=== PATIENT | female | born 1990 | race Caucasian/White ===

== ENCOUNTER 2016-08-29 04:53 | Emergency (ER) | payer MEDICAID, OTHER ==
[~2016-08-29] VITALS: Ht 160 cm; Wt 98.5 kg
[~2016-08-29 04:53] MED LIST: PREN1TAB49 PO
[2016-08-29 05:10] VITALS: Ht 160 cm; Wt 98.5 kg
--- NOTE | 2016-08-29 05:28 | ERD ---
ER Documentation Chief Complaint Date/Time DATE: 08/29/16 TIME: 05:26 Chief Complaint Vaginal bleed possible with home test kit (OZZIE COLE PA-C) HPI Patient is a 26-year-old female who is who presents to the ED with mild vaginal bleeding and pelvic pain 1 day. She states that she developed mild bleeding starting yesterday. She states that she found out she was 1 week ago. She states that her last normal menstrual period was 06/01/2016. She does not have an OB doctor. Denies fever or chills. Denies abdominal pain but does complain of nausea with no vomiting or diarrhea. Denies leg pain or swelling. Denies recent travel or recent surgeries. Denies chest pain, cough, shortness of breath or difficulty breathing. No other complaints. (OZZIE COLE PA-C) ROS All systems reviewed and are negative except as per history of present illness. (OZZIE COLE PA-C) Medications Home Meds Reported Medications Vits W-Ca,Fe,Fa(<1MG) () 1 Tab Tablet, 1 TAB PO 04/19/12 Allergies Allergies: Coded Allergies: No Known Allergies (Verified Allergy, 04/19/12) PMhx/Soc Medical and Surgical Hx: pt denies Medical Hx, pt denies Surgical Hx History of Surgery: No Anesthesia Reaction: No Hx Neurological Disorder: No Hx Respiratory Disorders: No Hx Cardiac Disorders: No Hx Psychiatric Problems: No Hx Miscellaneous Medical Probl: No Hx Alcohol Use: No Hx Substance Use: No Hx Tobacco Use: No Smoking Status: Never smoker (OZZIE COLE PA-C) Physical Exam Vitals Vital Signs Date Time Temp Pulse Resp B/P Pulse Ox O2 Delivery O2 Flow Rate FiO2 08/29/16 05:10 98.7 84 18 130/74 97 (MATTY GAMEZ PA-C) Physical Exam GENERAL: Well-developed, well-nourished female. Appears in no acute distress. HEAD: Normocephalic, atraumatic. EYES: Pupils are equally reactive bilaterally. EOMs grossly intact. No conjunctival erythema. ENT: Moist mucous membranes. No uvula deviation. No kissing tonsils. No exudates. NECK: Supple. No lymphadenopathy or thyromegaly. No meningismus. negative kernig. negative brudinski. LUNG: Clear to auscultation bilaterally. No rhonchi, wheezing, rales or coarse breath sounds. HEART: Regular rate and rhythm. No murmurs, rubs or gallops. ABDOMEN: No scars, ecchymosis or rashes noted. Soft, nontender, and nondistended. Positive bowel sounds in all four quadrants. No rebound tenderness , no guarding. (-) McBurneys point tenderness. No CVA tenderness. BACK: No midline tenderness. Extremities: Equal pulses bilaterally. No peripheral clubbing, cyanosis or edema. No unilateral leg swelling. NEUROLOGIC: Alert and oriented. Moving all four extremities. 5/5 strength in all extremities. Normal speech. Steady gait. SKIN: Normal color. Warm and dry. No rashes or lesions. Capillary refill < 2 seconds (OZZIE COLE PA-C) Result Diagram: 08/29/16 0535 Results 24 hrs Laboratory Tests Test 08/29/16 05:30 08/29/16 05:35 Urine Color YELLOW Urine Clarity CLEAR Urine pH 6.0 Urine Specific [place] >=1.030 Urine Ketones TRACE Urine Nitrite NEGATIVE Urine Bilirubin NEGATIVE Urine Urobilinogen 1.0 E.U./dL Urine Leukocyte Esterase NEGATIVE Urine Microscopic RBC 0-2/HPF Urine Microscopic WBC 0-2/HPF Urine Epithelial Cells MODERATE Urine Bacteria FEW Urine Mucus FEW Urine Hemoglobin 2+ Urine Glucose NEGATIVE% Urine Total Protein NEGATIVE White Blood Count 11.110^3/ul Red Blood Count 4.8510^6/ul Hemoglobin 14.3g/dl Hematocrit 41.3% Mean Corpuscular Volume 85.2fl Mean Corpuscular Hemoglobin 29.5pg Mean Corpuscular Hemoglobin Concent 34.6g/dl Red Cell Distribution Width 11.7% Platelet Count 59885^3/UL Mean Platelet Volume 9.3fl Neutrophils % 62.3% Lymphocytes % 29.0% Monocytes % 7.0% Eosinophils % 1.1% Basophils % 0.3% Nucleated Red Blood Cells % 0.0/100WBC Neutrophils # 6.910^3/ul Lymphocytes # 3.210^3/ul Monocytes # 0.810^3/ul Eosinophils # 0.110^3/ul Basophils # 0.010^3/ul Nucleated Red Blood Cells # 0.010^3/ul Beta HCG, Quantitative 4311.6mIU/ml (MATTY GAMEZ PA-C) Procedures/MDM ER COURSE: I kept the patient and/or family informed of laboratory and diagnostic imaging results throughout the emergency room course. MEDICAL DECISION MAKING: This is a 26-year-old female who presents with who presents to the ED with mild vaginal bleeding and pelvic pain 1 day. Vital signs were reviewed. Patient is afebrile. Patient is not hypoxic. Patient is not toxic or ill- appearing. Blood work, urine, beta hCG and ultrasound was ordered. Pending results. Patient will be handed over to DEANNE Eddy who will be taking over patient's case. Patient is stable at transfer to [facility] with no new complaints. All questions were answered. (OZZIE COLE PA-C) Patient was signed out to me by Ozzie Cole PA-C ED COURSE: The patient was stable throughout ED course. I kept the patient and/or family informed of laboratory and diagnostic imaging results throughout the ED course. DIAGNOSTIC IMAGING: Read by radiologist. DIAGNOSTIC IMAGING REPORT Patient: GAURANG VILLALOBOS : 1990 Age: 26 Sex: F MR #: [id number] DOS: 08/29/16 0521 Ordering MD: OZZIE COLE PA-C Location: [facility] Room/Bed: PROCEDURE: Obstetrical ultrasound. CLINICAL INDICATION: Vaginal bleeding. TECHNIQUE: Multiple sonographic images of the pelvis were obtained with transabdominal and endovaginal technique. Images were obtained with kirk scale and color Doppler. COMPARISON: None. FINDINGS: There is an irregular appearing intrauterine gestational sac with a yolk sac identified. No pole is identified. The mean sac diameter averages 0.81 cm, compatible with 5 weeks and 3 days gestation. No subchorionic collection is identified. There is trace free fluid within the posterior cul-de-sac. The right ovary measures 3.4 x 2.2 x 2.6 cm and demonstrates normal flow. There is a 1.9 severe corpus luteum cyst within the right ovary. The left ovary is not visualized. There is no suspicious adnexal mass identified. IMPRESSION: Irregular appearing intrauterine gestational sac with a yolk sac identified, compatible with 5 weeks and 3 days. No pole is identified. Short-term follow-up ultrasound is recommended. Right ovarian 1.9 cm corpus luteum cyst. Trace pelvic free fluid. Left ovary not visualized. .Miki Rodriguez MD, MD Date Time Electronically viewed and signed by .Miki Rodriguez MD, MD on 08/29/2016 07:29 .T/ CC: OZZIE COLE PA-C MEDICAL DECISION MAKING: This is a 26-year-old female who presents to the emergency department for vaginal bleeding. Vital signs were reviewed. Patient was afebrile. Patient was hemodynamically stable. Urine test was positive. Quantitative b-HCG was 4311. Vision was O+. No RhoGam was given. CBC showed no evidence or severe anemia. Pelvic US showed irregular appearing intrauterine gestational sac with a yolk sac identified, compatible with 5 weeks and 3 days. No pole is identified. Short-term follow-up ultrasound is recommended. Right ovarian 1.9 cm corpus luteum cyst. Trace pelvic free fluid. Left ovary not visualized. Given these findings, the patient's presentation is most consistent with vaginal bleeding during the first trimester. Unable to rule out ectopic at this time. I have a much lower clinical concern for molar , subchorionic hematoma, incomplete , complete , missed , placental abruption, placental previa, vasa previa, uterine rupture, anembyronic . I explained to the patient that she will need to return to the emergency department or follow-up with her [facility] in 2 days for repeat beta-hCG level and pelvic ultrasound. Patient understands and is in agreement with this plan. She was provided with a copy of all imaging and blood work studies obtained today. DISCHARGE: At this time, patient is stable for discharge and outpatient management. I had a conversation at length with the patient about the concerns of vaginal bleeding during the 1st trimester of . Patient and/or family understands that her vaginal bleeding can be a normal finding or a sign of miscarriage. I have instructed the patient to follow-up with her OBGYN in 1-2 days for further monitoring including a repeat b-HCG level. I have instructed the patient to promptly return to the ER at any time for any new or worsening symptoms including increased pain, nausea, vomiting, continued bleeding, weakness, syncope or fever. The patient and/or family expressed understanding of and agreement with this plan. All questions were answered. Home care instructions were provided. (MATTY GAMEZ PA-C) Departure Diagnosis: Primary Impression: Vaginal bleeding in patient at less than 20 weeks gestation Condition: Stable Referrals: [facility] REFERRAL LIST Additional Instructions: She was advised that she will need to return to the emergency department or follow-up with her [facility] in 2 days for repeat beta-hCG and pelvic ultrasound. OZZIE COLE PA-C Aug 29, 2016 05:28 MATTY GAMEZ PA-C Aug 29, 2016 08:05
[2016-08-29 05:53] LABS: ADD SCAN DIFF NO
[2016-08-29 06:20] LABS: BASOPHILS % 0.3 % (0.0-2.0); EOSINOPHILS # 0.1 10^3/ul (0.0-0.5); EOSINOPHILS % 1.1 % (0.0-7.0); HEMATOCRIT 41.3 % (37.0-47.0); HEMOGLOBIN 14.3 g/dl (12.0-16.0); LYMPHOCYTES # 3.2 10^3/ul (0.8-2.9); MEAN CORPUSCULAR HEMOGLOBIN 29.5 pg (29.0-33.0); MEAN CORPUSCULAR HGB CONC 34.6 g/dl (32.0-37.0); MEAN CORPUSCULAR VOLUME 85.2 fl (82.0-101.0); MEAN PLATELET VOLUME 9.3 fl (7.4-10.4); MONOCYTE # 0.8 10^3/ul (0.3-0.9); NEUTROPHIL # 6.9 10^3/ul (1.6-7.5); NEUTROPHILS % 62.3 % (39.0-77.0); PLATELET COUNT 304 10^3/UL (140-415); RED BLOOD COUNT 4.85 10^6/ul (4.20-5.40); RED CELL DISTRIBUTION WIDTH 11.7 % (11.5-14.5); WHITE BLOOD COUNT 11.1 10^3/ul (4.8-10.8)
[2016-08-29 06:24] LABS: ADD UMIC YES; URINE BILIRUBIN (Dip) NEGATIVE (NEGATIVE); URINE BLOOD (Dip) 2+ (NEGATIVE); URINE COLOR YELLOW (YELLOW); URINE GLUCOSE (Dip) NEGATIVE (NEGATIVE); URINE KETONES (Dip) TRACE (NEGATIVE); URINE LEUKOCYTE ESTERASE (Dip) NEGATIVE (NEGATIVE); URINE NITRITE (Dip) NEGATIVE (NEGATIVE); URINE TOTAL PROTEIN (Dip) NEGATIVE (NEGATIVE); URINE UROBILINOGEN (Dip) 1.0 E.U./dL (0.1-1.0)
[2016-08-29 06:59] LABS: BACTERIA,URINE FEW; MUCUS,URINE FEW; URINE RBCS 0-2 /HPF (0)
--- NOTE | 2016-08-29 07:29 | RADRPT ---
PROCEDURE: Obstetrical ultrasound. CLINICAL INDICATION: Vaginal bleeding. TECHNIQUE: Multiple sonographic images of the pelvis were obtained with transabdominal and endova ginal technique. Images were obtained with kirk scale and color Doppler. COMPARISON: None. FINDINGS: There is an irregular appearing intrauterine gestational sac with a yolk sac identified. No p ole is identified. The mean sac diameter averages 0.81 cm, compatible with 5 weeks and 3 days gesta tion. No subchorionic collection is identified. There is trace free fluid within the posterior cul-de-sac. The right ovary measures 3.4 x 2.2 x 2.6 cm and demonstrates normal flow. There is a 1.9 severe corpus luteum cyst within the right ovary. The left ovary is not visualized. There is no suspicious adnexal mass identified. IMPRESSION: Irregular appearing intrauterine gestational sac with a yolk sac identified, compatible with 5 weeks and 3 days. No pole is identified. Short-term follow-up ultrasound is recommended. Right ovarian 1.9 cm corpus luteum cyst. Trace pelvic free fluid. Left ovary not visualized. .Miki Rodriguez MD, MD Date Time Electronically viewed and signed by .Miki Rodriguez MD, MD on 08/29/2016 07:29 .T/
== END 2016-08-29 08:12 | disposition home or self-care (01) ==
LOC: FTE 04:53
DX: O20.9 Hemorrhage in early pregnancy, unspecified (principal); Z3A.01 Less than 8 weeks gestation of pregnancy
CPT/HCPCS: 36415; 76801; 76817; 81001; 81003; 84702; 85025; 86900; 86901